=== PATIENT | female | born 1930 | race Caucasian/White ===

== ENCOUNTER → 2018-04-04 | Emergency (ER) | payer OTHER ==
[~2018-04-04] VITALS: Ht 160 cm; Wt 63.5 kg
[~2018-04-04] MED LIST: ATIVAN0.5 MG; CRESTOR10 MG; ZANTAC150 M3
== END | disposition left against medical advice (07) ==
LOC: ER 08:43
DX: Z53.20 Procedure and treatment not carried out because of patient's decision for unspecified reasons (principal)